=== PATIENT | male | born 1965 | race Two or more races ===

== ENCOUNTER 2023-01-24 13:47 | Emergency (ER) | payer OTHER ==
[~2023-01-24] VITALS: Ht 175.3 cm; Wt 85.7 kg
[2023-01-24] MEDS ORDERED: COZAAR50 MG PO (13:56)
[2023-01-24 16:45] LABS: HEMATOCRIT 44.7 % (39.0-48.0); HEMOGLOBIN 15.4 g/dL (13-16.00); MEAN CORPUSCULAR HEMOGLOBIN 31.8 pg (27.00-32.0); MEAN CORPUSCULAR HGB CONC 34.5 g/dl (32.0-36.0); PLATELET COUNT 253 K/uL (150-450); RED BLOOD COUNT 4.85 M/uL (4.00-6.00); RED CELL DISTRIBUTION WIDTH 13.5 % (11.5-14.5)
[2023-01-24 17:04] LABS: CALCIUM 9.6 mg/dL (8.5-10.1); GFR 76.75; POTASSIUM 4.55 mEq/L (3.5-5.1)
[2023-01-24] MEDS ORDERED: MEDROLPACK PO (18:06)
[2023-01-24] MEDS ORDERED: BENADRYL25 MG PO (18:06)
== END 2023-01-24 18:15 | disposition home or self-care (01) ==
LOC: ER 13:47
PROVIDERS: General Practice
DX: R21 Rash and other nonspecific skin eruption (principal); I10 Essential (primary) hypertension

== ENCOUNTER 2023-11-07 12:26 | Emergency (ER) | payer OTHER ==
[~2023-11-07] VITALS: Ht 177.8 cm; Wt 85.7 kg
[~2023-11-07 12:26] MED LIST: BENADRYL25 MG PO; COZAAR50 MG PO; MEDROLPACK PO
[2023-11-07] MEDS ORDERED: METHYLPREDNISOLONE SOD SUCC 125 MG VIAL IM STA (14:43)
[2023-11-07] MEDS ORDERED: METHYLPREDNISOLONE SOD SUCC 125 MG VIAL ONE (14:52)
== END 2023-11-07 14:58 | disposition home or self-care (01) ==
LOC: ER 12:27
DX: T65.6X1A Toxic effect of paints and dyes, not elsewhere classified, accidental (unintentional), initial encounter (principal); L25.3 Unspecified contact dermatitis due to other chemical products; Y92.89 Other specified places as the place of occurrence of the external cause

== ENCOUNTER 2024-04-03 17:51 | Emergency (ER) | payer OTHER ==
[~2024-04-03] VITALS: Ht 177.8 cm; Wt 85.3 kg
[2024-04-03] MEDS ORDERED: NON-ASPIRIN PA500 MG PO (20:32)
[2024-04-03] MEDS ORDERED: KETOROLAC TROMETHAMINE 60 MG VIAL IM ONE (20:45)
== END 2024-04-03 20:46 | disposition home or self-care (01) ==
LOC: ER 17:54
DX: K64.8 Other hemorrhoids (principal); I10 Essential (primary) hypertension

== ENCOUNTER 2024-05-15 10:00 | Emergency (ER) | payer OTHER ==
[~2024-05-15] VITALS: Ht 177.8 cm; Wt 83.9 kg
[~2024-05-15 10:00] MED LIST changes: +NON-ASPIRIN PA500 MG PO
[2024-05-15] MEDS ORDERED: DICYCLOMINE HCL 20 MG TABLET PO ONE (11:30)
[2024-05-15] MEDS ORDERED: DICYCLOMINE HCL 10 MG CAPSULE PO ONE (11:37)
[2024-05-15 12:00] LABS: HEMATOCRIT 41.3 % (39.0-48.0); HEMOGLOBIN 14.2 g/dL (13-16.00); MEAN CELL VOLUME 93.5 fL (80.0-100.00); MEAN CORPUSCULAR HEMOGLOBIN 32.1 pg (27.00-32.0); MEAN CORPUSCULAR HGB CONC 34.3 g/dl (32.0-36.0); PLATELET COUNT 230 K/uL (150-450); RED BLOOD COUNT 4.42 M/uL (4.00-6.00); RED CELL DISTRIBUTION WIDTH 12.7 % (11.5-14.5)
[2024-05-15] MEDS ORDERED: PROTONIX40 MG PO (12:44)
== END 2024-05-15 13:00 | disposition home or self-care (01) ==
LOC: ER 10:02
PROVIDERS: General Practice
DX: K29.70 Gastritis, unspecified, without bleeding (principal); R10.9 Unspecified abdominal pain; I10 Essential (primary) hypertension